=== PATIENT | female | born 1945 | race Caucasian/White ===

== ENCOUNTER 2025-06-26 11:17 | Inpatient (IN) | payer OTHER ==
[~2025-06-26] VITALS: Ht 162.6 cm; Wt 41.7 kg
[2025-06-26] MEDS: IV NS 0.9% 1,000 ML BAG IV ONE ×2 (11:32→12:30)
[2025-06-26 11:41] LABS: PLATELET COUNT (AUTO) 202 K/uL (150-450); RED BLOOD CELL COUNT(AUTO) 4.11 MIL/uL (4.0-5.2); RED CELL DISTRIBUTION WIDTH 13.4 % (11.5-15.0); WHITE BLOOD COUNT (AUTO) 10.2 K/uL (4.3-11.0)
[2025-06-26 11:56] LABS: CALCIUM, SERUM 11.8 mg/dL (8.5-10.1); CREATININE 1.6 mg/dL (0.6-1.3); SODIUM SERUM 146 mmol/L (136-145); UREA NITROGEN, BLOOD 52 mg/dL (7-18)
[2025-06-26 12:00] LABS: LACTIC ACID 2.2 mmol/L (0.4-2.0)
[2025-06-26 12:04] LABS: ASPARTATE AMINOTRANSFERASE 39 U/L (15-37); TOTAL PROTEIN, SERUM 7.5 g/dL (6.4-8.2)
[2025-06-26 12:04] LABS: APPEARANCE,URINE CLEAR (CLEAR); BLOOD, URINE Moderate Ery/uL (NEGATIVE); LEUKOCYTE ESTERASE ,URINE Negative (NEGATIVE); UGLUCOSE Negative (NEGATIVE)
[2025-06-26 12:07] LABS: NITRITE, URINE NEGATIVE (NEGATIVE)
[2025-06-26 12:20] LABS: ADD URINE CULTURE NO; SQUAMOUS EPITHELIAL CELL,UR Few /HPF (None Seen)
[2025-06-26] MEDS ORDERED: CEFTRIAXONE 1GM BAG (ER ONLY) 50 ML IV ONE (12:28)
[2025-06-26] MEDS: CEFTRIAXONE 1 G in IV D5W 50 ML IV ONE (12:30)
[2025-06-26] MEDS ORDERED: ASPIRIN EC 81 MG TABLET.DR PO ONE (13:30)
[2025-06-26] MEDS ORDERED: ASPIRIN 81 MG TAB.CHEW ONE (13:31)
[2025-06-26] MEDS: ASPIRIN 81 MG TAB.CHEW PO ONE (13:33)
[2025-06-26] MEDS ORDERED: PARO12.520 PO (13:51)
[2025-06-26] MEDS ORDERED: ONDANSETRON HCL/PF 4 MG/2 ML VIAL IVP PRN (14:30)
[2025-06-26] MEDS: HEPARIN SODIUM, PORCINE 5000 UNITS/1 ML VIAL SQ SCH (14:30)
[2025-06-26] MEDS ORDERED: ACETAMINOPHEN 325 MG TABLET PO PRN (14:30)
[2025-06-26] MEDS ORDERED: HEPARIN SODIUM, PORCINE 5000 UNITS/1 ML VIAL ONE (16:10)
[2025-06-26 17:00] VITALS: BP 150/86; TEMP 97.1; O2SAT 96
[2025-06-26] MEDS: IV NS 0.9% 1,000 ML IV PRN (17:57)
[2025-06-26 20:00] VITALS: BP 141/86; TEMP 98.1; O2SAT 99
[2025-06-27] VITALS: BP 136/74; TEMP 98.6; O2SAT 100
[2025-06-27 04:00] VITALS: BP 150/86; TEMP 98.8; O2SAT 96
[2025-06-27] MEDS: PANTOPRAZOLE 40 MG TABLET.DR PO SCH (07:30)
[2025-06-27 08:00] VITALS: BP 153/91; TEMP 98.2; O2SAT 98
[2025-06-27] MEDS: METOPROLOL TARTRATE 25 MG TABLET PO SCH (08:05)
[2025-06-27] MEDS ORDERED: PAROXETINE HCL 12.5 MG PO SCH (09:00)
[2025-06-27] MEDS: NITROGLYCERIN 30 GM TUBE TP SCH (09:19)
[2025-06-27] MEDS: LORAZEPAM INJ 2 MG/ML VIAL IV ONE ×3 (11:08→16:11)
[2025-06-27 12:00] VITALS: BP 112/68; TEMP 98.1; O2SAT 97
[2025-06-27] MEDS ORDERED: ONDA4VIA23 IVP (12:17)
[2025-06-27] MEDS ORDERED: NITR1OIN2 TP (12:17)
[2025-06-27] MEDS ORDERED: [UNRECOGNIZED DRUG - CODE] IV (12:17)
[2025-06-27] MEDS ORDERED: HEPA50008 SQ (12:17)
[2025-06-27] MEDS ORDERED: PANT40TA49 PO (12:17)
[2025-06-27] MEDS ORDERED: ACET325T53 PO (12:17)
[2025-06-27] MEDS ORDERED: METO25TA20 PO (12:17)
[2025-06-27 15:25] LABS: PLATELET COUNT (AUTO) 168 K/uL (150-450); RED BLOOD CELL COUNT(AUTO) 3.75 MIL/uL (4.0-5.2); RED CELL DISTRIBUTION WIDTH 13.3 % (11.5-15.0); WHITE BLOOD COUNT (AUTO) 10.6 K/uL (4.3-11.0)
[2025-06-27] MEDS: DILTIAZEM HCL 50 MG IV IV ONE (15:51)
[2025-06-27 15:54] LABS: ASPARTATE AMINOTRANSFERASE 48.0 U/L (15-37); CALCIUM, SERUM 10.6 mg/dL (8.5-10.1); CREATININE 1.4 mg/dL (0.6-1.3); PHOSPHORUS 2.6 mg/dL (2.5-4.9); SODIUM SERUM 145.0 mmol/L (136-145); TOTAL PROTEIN, SERUM 6.2 g/dL (6.4-8.2); UREA NITROGEN, BLOOD 36.0 mg/dL (7-18)
[2025-06-27 15:58] LABS: CREATINE KINASE, TOTAL 348.0 U/L (26-192)
[2025-06-27 16:00] VITALS: BP 103/76; TEMP 98.1; O2SAT 97
[2025-06-27] MEDS ORDERED: LORAZEPAM 4 MG/ML VIAL IV ONE (16:00)
[2025-06-27] MEDS: LEVETIRACETAM (500MG) 2,000 MG in IV NS 0.9% 80 ML IV ONE (16:23)
[2025-06-27] MEDS ORDERED: LEVETIRACETAM (500MG) 1,000 MG in IV NS 0.9% 90 ML IV SCH (17:00)
[2025-06-27 20:00] VITALS: BP 113/69; TEMP 98; O2SAT 100
[2025-06-28] VITALS: BP 110/71; TEMP 98.1; O2SAT 100
[2025-06-28 04:00] VITALS: BP 133/78; TEMP 98; O2SAT 100
[2025-06-28] MEDS: LEVETIRACETAM (500MG) 1,000 MG in IV NS 0.9% 90 ML IV SCH (04:28)
[2025-06-28 07:25] LABS: PLATELET COUNT (AUTO) 150 K/uL (150-450); RED BLOOD CELL COUNT(AUTO) 3.87 MIL/uL (4.0-5.2); RED CELL DISTRIBUTION WIDTH 13.2 % (11.5-15.0); WHITE BLOOD COUNT (AUTO) 5.6 K/uL (4.3-11.0)
[2025-06-28 08:00] VITALS: BP 126/85; TEMP 97.5; O2SAT 99
[2025-06-28 08:00] LABS: ASPARTATE AMINOTRANSFERASE 38.0 U/L (15-37); CALCIUM, SERUM 9.1 mg/dL (8.5-10.1); CREATININE 1.1 mg/dL (0.6-1.3); PHOSPHORUS 2.3 mg/dL (2.5-4.9); TOTAL PROTEIN, SERUM 5.8 g/dL (6.4-8.2); UREA NITROGEN, BLOOD 25.0 mg/dL (7-18)
[2025-06-28 08:26] LABS: SODIUM SERUM 144.0 mmol/L (136-145)
[2025-06-28 09:00] LABS: CREATINE KINASE, TOTAL 156.0 U/L (26-192)
[2025-06-28 12:00] VITALS: BP 118/81; TEMP 97.6; O2SAT 100
[2025-06-28] MEDS: POTASSIUM CL. PREMIX PERIPHER. 50 ML IV SCH (12:27)
[2025-06-28] MEDS ORDERED: IOHEXOL-350 100 ML VIAL IV ONE (12:57)
[2025-06-28] MEDS ORDERED: IV NS 0.9% 250 ML IV ONE (12:57)
[2025-06-28] MEDS: DEXTROSE 50%-WATER 50 ML DISP.SYRIN IVP ONE (13:35)
[2025-06-28 16:00] VITALS: BP 150/86; TEMP 97.5; O2SAT 100
[2025-06-28] MEDS: ENOXAPARIN SODIUM 40 MG/0.4 ML DISP.SYRIN SQ SCH (18:11)
[2025-06-28] MEDS: POTASSIUM PHOSPHATE MM 7.5 MMOL in IV NS 0.9% 100 ML IV SCH (18:12)
[2025-06-28 18:14] VITALS: BP 155/92; TEMP 97.7; O2SAT 99
[2025-06-28] MEDS: Magnesium 1GM/D5W 100ML PREMIX 100 ML IV SCH (19:26)
[2025-06-28] MEDS ORDERED: LEVETIRACETAM (250 MG) 250 MG TABLET PO SCH (21:00)
[2025-06-29 11:11] LABS: PTH, INTACT 276 pg/mL (15-65)
== END 2025-06-28 19:54 | disposition short-term general hospital (02) | DRG 640 ==
LOC: ER 11:37 → TELE-TD 15:21 → TELE1 16:33
PROVIDERS: ADMIT Nurse Practitioner Family; ATTEND Nurse Practitioner Family
DX: E86.0 Dehydration (principal); I21.A1 Myocardial infarction type 2; N17.0 Acute kidney failure with tubular necrosis; I26.99 Other pulmonary embolism without acute cor pulmonale; M62.82 Rhabdomyolysis; G93.40 Encephalopathy, unspecified; F03.92 Unspecified dementia, unspecified severity, with psychotic disturbance; N13.30 Unspecified hydronephrosis; E87.20 Acidosis, unspecified; E87.0 Hyperosmolality and hypernatremia; R56.9 Unspecified convulsions; R62.7 Adult failure to thrive; Z20.822 Contact with and (suspected) exposure to COVID-19; M89.8X9 Other specified disorders of bone, unspecified site; Z79.899 Other long term (current) drug therapy; I10 Essential (primary) hypertension; F41.9 Anxiety disorder, unspecified; F32.A Depression, unspecified; R73.9 Hyperglycemia, unspecified; E80.6 Other disorders of bilirubin metabolism; J44.9 Chronic obstructive pulmonary disease, unspecified; E83.52 Hypercalcemia; F29 Unspecified psychosis not due to a substance or known physiological condition; Z79.01 Long term (current) use of anticoagulants; E87.6 Hypokalemia
CPT/HCPCS: 36415; 70450-TC; 70496-TC; 70498-TC; 71045-TC; 76700-TC; 80048-TC; 80053-TC; 80076-TC; 81001; 82550-TC; 82553; 82962-TC; 83605-TC; 83735-TC; 83970; 84100-TC; 84132-TC; 84155; 84165; 84443-TC; 84484-TC; 85025-TC; 87040-TC; 87081-TC; 92526; 92611; 93307-TC; 95819-TC; 97530-TC; 97535-TC; A4223; G0378; J0696; J1644; J1650; J1953; J2060; J3480; J3490; J7030; J7050; J7060; Q9967